=== PATIENT | female | born 1985 | race Caucasian/White ===

== ENCOUNTER 2017-09-27 09:47 | Emergency (ER) | payer OTHER ==
[~2017-09-27] VITALS: Ht 167.6 cm; Wt 90.7 kg
--- NOTE | 2017-09-27 10:01 | NUR ---
Patient discharged to home in stable conditon. Written and verbal after care instructions given. Patient verbalizes understanding of instructions.
== END 2017-09-27 10:06 | disposition home or self-care (01) ==
LOC: ER 09:47
DX: L03.115 Cellulitis of right lower limb (principal)
CPT/HCPCS: A4663

== ENCOUNTER 2017-11-20 19:19 | Emergency (ER) | payer OTHER ==
[~2017-11-20] VITALS: Ht 167.6 cm; Wt 84.4 kg
--- NOTE | 2017-11-20 19:43 | NUR ---
Patient discharged to home in stable conditon. Written and verbal after care instructions given. Patient verbalizes understanding of instructions.
[2017-11-20 19:45] VITALS: BP 118/94
== END 2017-11-20 19:45 | disposition home or self-care (01) ==
LOC: ER 19:22
DX: S80.862A Insect bite (nonvenomous), left lower leg, initial encounter (principal); W57.XXXA Bitten or stung by nonvenomous insect and other nonvenomous arthropods, initial encounter; Y93.89 Activity, other specified; Y92.89 Other specified places as the place of occurrence of the external cause; Y99.8 Other external cause status
CPT/HCPCS: 99283; A4663